=== PATIENT | male | born 1985 ===

== ENCOUNTER 2019-03-08 07:54 | Day surgery (SDC) | payer OTHER ==
[2019-03-08] VITALS (8 sets, daily range): BP systolic 127–157; BP diastolic 63–88
[~2019-03-08] VITALS: Ht 165.1 cm; Wt 84.7 kg
[~2019-03-08 07:54] MED LIST: ALBU8.5H8 INH; AMIT-189 PO; FLUO20CA39 PO; GABA600T13 PO; HYDR-3686 PO; IBUP-1984 PO; LEVA15HF4 INH; LORA10TA7 PO; MOME13HF4 INH; NAPR-996 PO; NASOCORT NS; OMEP20CA11 PO; TRIA10.8 IH; albuterol 2.5 MG/3 ML nebule NEB ONE; cefazolin/dext.iso 2gm/100 ML IV ONE; famotidine 20mg tablet PO ONE; ringers solution, lacted 1,000 ML IV SCH
[2019-03-08] MEDS ORDERED: ringers solution, lacted 1,000 ML IV SCH (10:01)
[2019-03-08] MEDS ORDERED: morphine 4 MG/ML inj SYRINge IV PRN ×2 (10:05)
[2019-03-08] MEDS ORDERED: proCHLORperazine 10 MG/2 ml inj IV PRN (10:05)
[2019-03-08] MEDS ORDERED: meperidine/PF 25mg/ml syringe IV PRN ×3 (10:05)
[2019-03-08] MEDS ORDERED: ondansetron/PF 4mg/2ml inj IV PRN (10:05)
[2019-03-08] MEDS ORDERED: epiNEPHrine 1 mg/ml inj ONE (11:12)
[2019-03-08] MEDS ORDERED: ROPIVAcaine 0.5% (5mg/ml) 30ml vial ONE ×2 (11:12→11:40)
[2019-03-08] MEDS ORDERED: ceFAZolin 1000mg inj ONE (11:12)
[2019-03-08] MEDS ORDERED: fentaNYL/PF 50MCG/1 ML 2ML syringe ONE (11:17)
[2019-03-08] MEDS ORDERED: MIDAZolam 5mg/5ml vial ONE (11:17)
[2019-03-08] MEDS ORDERED: propofol inj 20 ML IV ONE (11:19)
[2019-03-08] MEDS ORDERED: dexamethasone sod phosphate 4mg/ml inj. ONE (11:42)
[2019-03-08] MEDS ORDERED: rocuronium 10mg/ml inj IV ONE (11:42)
--- NOTE | 2019-03-08 13:35 | NUR ---
Received from OR via BED, accompanied by Anesthesiologist DR KLINE and report given by Anesthesiolgist. PATIENT A&OX4, DENIES PAIN, V/S WNL, NEUROVASCULAR CHECKS INTACT, 20G PIV LUE, SCD ON, DRESSING TO RIGHT KNEE CDI W/ GINGER BRACE LOCKED IN EXTENSION
[2019-03-08] MEDS ORDERED: acetaminophen w/codeine (30MG) #3 tablet PO ONE (13:50)
--- NOTE | 2019-03-08 14:35 | NUR ---
PATIENT A&OX4, DENIES PAIN, V/S WNL, NEUROVASCULAR CHECKS INTACT, 20G PIV LUE D/C, SCD OFF, DRESSING TO RIGHT KNEE CDI W/ GINGER BRACE LOCKED IN EXTENSION. ALL DC CRITERIA HAS BEEN MET. IV OUT WITHOUT ISSUE OR COMPLICATION. DENIES PAIN. 2 GUARDS PRESENT FOR DC PAPERWORK. ALL QUESTIONS ANSWERED, GUARDS ASSISTED PATIENT IN GETTING DRESSED, OUT VIA WHEELCHAIR TO STATE VEHICLE WHERE THEY DROVE PATIENT BACK TO GROUP HOME. ALL DC CRITERIA HAS BEEN MET AND DRESSING IS CDI.
== END 2019-03-08 14:35 ==
LOC: PAS 07:54 → EEVIPCON 08:30 → PAS 14:35
PROVIDERS: ATTEND Orthopaedic Surgery
DX: S83.511A Sprain of anterior cruciate ligament of right knee, initial encounter (principal); F41.8 Other specified anxiety disorders; K21.9 Gastro-esophageal reflux disease without esophagitis; G62.9 Polyneuropathy, unspecified; X58.XXXA Exposure to other specified factors, initial encounter; Y93.89 Activity, other specified; G89.18 Other acute postprocedural pain; Z87.891 Personal history of nicotine dependence; Z79.899 Other long term (current) drug therapy; Z88.8 Allergy status to other drugs, medicaments and biological substances; Z91.048 Other nonmedicinal substance allergy status
CPT/HCPCS: 29888; 64447; 76942; 82948; 94640; 94760; C1713; C1776; J0171; J0690; J1100; J2175; J2250; J2704; J3010; J7120; L1832; A6449; A7000; J2795; J7030